=== PATIENT | female | born 1950 ===

== ENCOUNTER → 2021-06-05 09:37 | Outpatient (CLI) | payer OTHER | END | disposition home or self-care (01) | LOC: MRI 09:37 | PROVIDERS: ATTEND Emergency Medicine | DX: M54.16 Radiculopathy, lumbar region (principal); M54.12 Radiculopathy, cervical region | CPT/HCPCS: 72141; 72148 ==

== ENCOUNTER 2021-09-12 12:02 | Outpatient (CLI) | payer OTHER | END 2021-09-12 12:16 | disposition home or self-care (01) | LOC: MAMO-SONO 12:02 → NUCLEAR 13:30 | PROVIDERS: ATTEND Internal Medicine Cardiovascular Disease | DX: N63.11 Unspecified lump in the right breast, upper outer quadrant (principal); Z12.31 Encounter for screening mammogram for malignant neoplasm of breast ==

== ENCOUNTER 2021-09-12 14:39 | Outpatient (CLI) | payer OTHER | END 2021-09-12 14:40 | disposition home or self-care (01) | LOC: NUCLEAR 14:39 | PROVIDERS: ATTEND Internal Medicine Cardiovascular Disease | DX: M81.0 Age-related osteoporosis without current pathological fracture (principal) ==

== ENCOUNTER 2023-04-29 13:42 | Outpatient (CLI) | payer OTHER | END 2023-04-29 13:48 | disposition home or self-care (01) | LOC: MAMO-SONO 13:42 | PROVIDERS: ATTEND Internal Medicine Cardiovascular Disease | DX: Z12.31 Encounter for screening mammogram for malignant neoplasm of breast (principal); N63.12 Unspecified lump in the right breast, upper inner quadrant ==

== ENCOUNTER 2023-11-14 13:36 | Emergency (ER) | payer OTHER ==
[~2023-11-14] VITALS: Ht 160 cm; Wt 70.8 kg
[2023-11-14] MEDS ORDERED: DILTIAZEM 24HR240 MG PO (13:45)
[2023-11-14] MEDS ORDERED: LISINOPRIL40 MG PO (13:45)
[2023-11-14] MEDS ORDERED: INSULIN GL100 UNIT/1 SQ (13:45)
[2023-11-14] MEDS ORDERED: OZEMPIC1 MG/0.71 SQ (13:45)
[2023-11-14] MEDS ORDERED: METFORMIN HCL1000 M3 PO (13:45)
[2023-11-14] MEDS ORDERED: JARDIANCE25 MG PO (13:45)
[2023-11-14] MEDS ORDERED: ATORVASTATIN CA10 MG PO (13:45)
[2023-11-14 15:25] LABS: HEMATOCRIT 41.7 % (36.0-45.00); HEMOGLOBIN 14.5 g/dL (12.0-15.00); MEAN CELL VOLUME 91.4 fL (80.00-100.00); MEAN CORPUSCULAR HEMOGLOBIN 31.9 pg (27.00-32.0); MEAN CORPUSCULAR HGB CONC 34.9 g/dl (32.0-36.0); PLATELET COUNT 215 K/uL (150-450); RED BLOOD COUNT 4.56 M/uL (4.00-6.00); RED CELL DISTRIBUTION WIDTH 13.1 % (11.5-14.5)
[2023-11-14] MEDS ORDERED: MEDROLPACK PO (16:14)
[2023-11-14] MEDS ORDERED: LEVOFLOXACIN750 MG PO (16:14)
[2023-11-14] MEDS ORDERED: LEVALBUTER0.63 MG/3 IH (16:14)
[2023-11-14] MEDS ORDERED: TOBRAMYCIN-DEXAM5 ML OP (16:14)
== END 2023-11-14 16:27 | disposition home or self-care (01) ==
LOC: ER 13:36
PROVIDERS: General Practice
DX: R10.32 Left lower quadrant pain (principal); E78.49 Other hyperlipidemia; I10 Essential (primary) hypertension; E11.9 Type 2 diabetes mellitus without complications; Z79.4 Long term (current) use of insulin
CPT/HCPCS: 36415; 71045; 96365; 96366; 99284; J3490; J7042

== ENCOUNTER 2024-05-11 09:09 | Outpatient (CLI) | payer OTHER ==
[~2024-05-11 09:09] MED LIST: ATORVASTATIN CA10 MG PO; DILTIAZEM 24HR240 MG PO; INSULIN GL100 UNIT/1 SQ; JARDIANCE25 MG PO; LEVALBUTER0.63 MG/3 IH; LEVOFLOXACIN750 MG PO; LISINOPRIL40 MG PO; MEDROLPACK PO; METFORMIN HCL1000 M3 PO; OZEMPIC1 MG/0.71 SQ; TOBRAMYCIN-DEXAM5 ML OP
== END 2024-05-11 09:22 | disposition home or self-care (01) ==
LOC: SONOGRAMA 09:09
PROVIDERS: ATTEND Internal Medicine
DX: R10.13 Epigastric pain (principal); R74.8 Abnormal levels of other serum enzymes

== ENCOUNTER 2025-01-31 09:19 | Outpatient (CLI) | payer OTHER | END 2025-01-31 09:21 | disposition home or self-care (01) | LOC: MRI 09:19 | PROVIDERS: ATTEND Physical Medicine & Rehabilitation | DX: M43.16 Spondylolisthesis, lumbar region (principal); M54.16 Radiculopathy, lumbar region | CPT/HCPCS: 72148 ==

== ENCOUNTER → 2025-10-19 11:38 | Outpatient (CLI) | payer OTHER | END | disposition home or self-care (01) | LOC: RAD 11:38 | DX: S42.201D Unspecified fracture of upper end of right humerus, subsequent encounter for fracture with routine healing (principal); M75.121 Complete rotator cuff tear or rupture of right shoulder, not specified as traumatic ==

== ENCOUNTER → 2025-10-29 | Emergency (ER) | payer OTHER ==
[~2025-10-29] VITALS: Ht 160 cm; Wt 78.5 kg
[~2025-10-29] MED LIST changes: +ASPIRIN 325 MG TABLET PO STA; +ASPIRIN 325 MG TABLET.EC PO ONE; +DILTIAZEM HCL 240 MG CAP.SR.24H PO STA
[2025-10-29 10:50] LABS: BASO % 0.3 % (0.1-1.2); EOS # 0.06 (0.04-0.54); EOS % 0.7 % (0.7-7.0); LYMPH # 1.40 (1.18-3.74); LYMPH % 16.3 % (19.3-53.1); MEAN PLATELET VOLUME 9.70 fl (9.4-12.4); MONO # 0.62 (0.24-0.82); MONO % 7.2 % (4.7-12.5); NEUT # 6.45 (1.56-6.13); NEUT % 75.3 % (34.0-71.1); RED CELL DISTRIBUTION WIDTH 12.5 % (11.6-14.4)
[2025-10-29 11:18] LABS: ALT/SGPT 18.0 U/L (12-78); AST/SGOT 16.0 U/L (15-37); BILIRUBIN TOTAL 0.39 mg/dL (0.3-1.2); BUN CREA RATIO 25.0 (7.0-25.0); CREATININE SERUM 1.19 mg/dL (0.55-1.02); GFR 43.98; GLOBULINA 3.8 G/DL (2.4-3.5); OSMOLALITY SERUM 300.0 MOSM/KG (275-295); PHOSPHOKINASE CREATININE 78.0 U/L (26-192)
[2025-10-29 11:25] LABS: GLUCOSE FASTING 225.0 mg/dL (65-100)
[2025-10-29 15:27] LABS: URINE APPEARANCE Clear; URINE BILIRRUBIN Negative (NEGATIVE); URINE BLOOD Negative; URINE COLOR Yellow; URINE KETONE Negative (NEGATIVE); URINE LEUKOCYTE Small; URINE NITRATE Negative; URINE PROTEIN Negative (NEGATIVE); URINE UROBILINOGEN 0.2 E.U./dl
[2025-10-29 15:31] LABS: URINE BACTERIA 232.1 uL (0.0-1933); URINE EPITHELIAL CELLS 11.9 uL (0.0-38.8); URINE RBC 14.1 uL (0.0-20.8); URINE WBC 55.0 uL (0.0-23.2)
[2025-10-29 15:49] LABS: URINE CAST 0.42 uL (0.0-1.40); URINE GLUCOSE >=1000 MG/DL (NEGATIVE)
[2025-10-29 15:59] LABS: URINE YEAST FEW /hpf
== END | disposition designated cancer center or children's hospital (05) ==
LOC: ER 08:54
PROVIDERS: General Practice
DX: R42 Dizziness and giddiness (principal); H53.121 Transient visual loss, right eye; E11.9 Type 2 diabetes mellitus without complications; Z79.4 Long term (current) use of insulin